=== PATIENT | male | born 1960 | race Caucasian/White ===

== ENCOUNTER 2018-02-10 09:47 | Day surgery (SDC) | payer MEDICAID ==
[~2018-02-10 09:47] MED LIST: Metoclopramide 10 MG/2 ML SDV IV PRN; Sodium Chloride 0.9% 1,000 ML IV SCH; Sodium Chloride 0.9% 10 ML Syringe FLUSH PRN
[2018-02-10] MEDS ORDERED: Midazolam 1 MG/ML 5 ML SDV ONE (12:45)
[2018-02-10] MEDS ORDERED: Glycopyrrolate 0.2 MG/ML 2 ML SDV ONE (12:45)
[2018-02-10] MEDS ORDERED: Propofol 1,000 MG/100 ML SDV ONE (12:45)
[2018-02-10] MEDS ORDERED: Benzocaine/Butamben/Tetracaine Top Spray 56 GM Canister ONE (12:45)
[2018-02-10 13:30] VITALS: BP 114/76
--- NOTE | 2018-02-11 08:16 | OR ---
DATE OF OPERATION: 02/10/2018 PREOPERATIVE DIAGNOSIS: Diarrhea and abdominal pain. POSTOPERATIVE DIAGNOSIS: Diarrhea and abdominal pain. PROCEDURE: Esophagogastroduodenoscopy and colonoscopy with biopsies. ANESTHESIA: MAC. ESTIMATED BLOOD LOSS: Minimal. COMPLICATIONS: None. INDICATIONS FOR PROCEDURE: The patient is a 58-year-old male who has never had a previous colonoscopy or EGD. He has had increased loose stools and stomach concerns over the last 2 years, frequently has multiple bouts of watery diarrhea daily. Also, has complained of some GERD symptoms. The patient is here today for a colonoscopy and esophagogastroscopy. DESCRIPTION OF PROCEDURE: Informed consent was obtained from the patient. The patient was taken to the operating room, placed on table in left lateral decubitus position. Monitored anesthesia care was administered. The gastroscope was then advanced through the oral cavity down the level of second portion of the duodenum. Second portion of the duodenum was normal. The patient did have some duodenitis in the duodenal bulb pulling back into the stomach. The patient did have some mild antral gastritis. Biopsy of this was taken for pathology and checked for H pylori. Retroflexion performed in the stomach was unremarkable. Gastroscope was then withdrawn. The patient did have a minimal amount of esophagitis as well. Remainder of the esophagus was normal. Gastroscope was then removed and then turned our attention to the colon. Digital rectal exam was performed and was normal. Colonoscope was then advanced through the anus directed toward the cecum. Cecum was reached, identified by appendiceal orifice and ileocecal valve. The ileocecal valve was intubated and the terminal ileum did appear to be normal. Colonoscope was then slowly withdrawn. Multiple random biopsies were taken on the way out. No areas of inflammation. No areas of ischemia. No AV malformations. No polyps. No masses were identified. Retroflexion performed in the rectum was also normal. At the end of the case, all sponge count, needle count, and instrument counts were correct. Gastroscope was then removed. The patient tolerated the procedure well and was brought to recovery room in good condition. FINDINGS: Duodenitis, gastritis, and esophagitis on upper scope. We will follow up on biopsies for H pylori. The colon and terminal ileum did appear to be normal. We will follow up on random colon biopsies. RECOMMENDATIONS: We would recommend daily omeprazole as previously recommended by primary care provider for his upper GI findings. We would recommend continued use of loperamide for his lower GI symptoms and await biopsy results. We would also recommend repeat screening colonoscopy in 10 years for colon cancer screening. ARLENE /[id number]
== END 2018-02-10 14:30 | disposition home or self-care (01) ==
LOC: LB.SDS 09:47
PROVIDERS: ATTEND Surgery
DX: R19.7 Diarrhea, unspecified (principal); K29.50 Unspecified chronic gastritis without bleeding; K20.9 Esophagitis, unspecified; K29.80 Duodenitis without bleeding
CPT/HCPCS: 88305; 88342; J2250; J2704; J3490; J7030